=== PATIENT | male | born 1990 | race African-American/Black ===

== ENCOUNTER 2023-05-03 01:28 | Emergency (ER) | payer OTHER ==
[~2023-05-03] VITALS: Ht 170.2 cm; Wt 76.2 kg
[2023-05-03 01:35] VITALS: BP 132/93; TEMP 98.5; O2SAT 98
== END 2023-05-03 01:49 ==
LOC: ER 01:30
DX: Z60.2 Problems related to living alone (principal); S00.31XA Abrasion of nose, initial encounter; X58.XXXA Exposure to other specified factors, initial encounter; Y93.89 Activity, other specified; Y92.89 Other specified places as the place of occurrence of the external cause; Y99.8 Other external cause status